=== PATIENT | male | born 1980 | race Caucasian/White ===

== ENCOUNTER 2021-11-20 08:18 | Inpatient (IN) | payer BC ==
[2021-11-20 09:28] LABS: Hemoglobin 14.7 g/dL (14.0-18.0); Mean Corpuscular Hemoglobin 30.9 pg (27.0-31.0); Mean Corpuscular Volume 96.6 fL (78.0-98.0); Mean Platelet Volume 5.9 fL (7.4-10.4); Platelet Count 409 thou/uL (130-400); RBC Distribution Width 13.9 % (11.5-14.5); Red Blood Cell (RBC) Count 4.76 mill/uL (4.70-6.10); White Blood Cell (WBC) Count 24.8 thou/uL (4.8-10.8)
[2021-11-20] MEDS ORDERED: Ondansetron PF 4 MG/2 ML Vial ONE (09:37)
[2021-11-20] MEDS ORDERED: Morphine 4 MG/ML VIAL ONE (09:37)
[2021-11-20 09:45] LABS: Band 32 % (5-11); MDiff Complete? YES; Monocytes 7 % (0-10); Neutrophil 60 % (42-75); Platelet Morphology Comment Appears Increased; Reactive Lymphocytes 1 % (0-10)
[2021-11-20] MEDS ORDERED: Iopamidol-370 76% 500 ML 1 ML ONE (09:45)
[2021-11-20 09:55] LABS: ALT (SGPT) 29 U/L (8-55); AST (SGOT) 15 U/L (5-34); Albumin 4.1 g/dL (3.5-5.0); Alkaline Phosphatase 64 U/L (40-110); Anion Gap 14 mmol/L (10-20); BUN (Urea Nitrogen) 14 mg/dL (8.9-20.6); Bilirubin, Total 0.6 mg/dL (0.2-1.2); Calc. Creatinine Clearance 0 mL/min (70-130); Carbon Dioxide 27 mmol/L (22-29); Chloride 100 mmol/L (98-107); Globulin 3.6 g/dL (2.4-3.5); Glucose 106 mg/dL (70-105); Lipase 23 U/L (8-78); Magnesium 1.8 mg/dL (1.6-2.6); Potassium 3.6 mmol/L (3.5-5.1); Protein, Total 7.7 g/dL (6.0-8.3); Sodium 137 mmol/L (136-145)
[2021-11-20] MEDS ORDERED: Piperacillin/Tazobactam 4.5 GM in Sodium Chloride 0.9% 100 ML IVPB SCH (10:00)
[2021-11-20] MEDS ORDERED: Acetaminophen 500 MG TAB ONE (10:24)
[2021-11-20 10:34] LABS: Bacteria/HPF None Seen HPF (None Seen); Bilirubin Negative (Negative); Blood, Urine Trace (Negative); Clarity Clear (Clear); Glucose, Urine (Dipstick) Normal (Negative); Ketone, Urine Negative (Negative); Leukocyte Negative Leu/uL (Negative); Nitrite Negative (Negative); Protein, Urine (Dipstick) Negative (Neg-Trace); RBC/HPF 0-3 HPF (0-3); Specific Gravity, Urine 1.019 (1.002-1.036); Squamous Epithelial None Seen HPF (0-3); Urobilinogen Normal mg/dL (Less than 2); WBC/HPF 0-3 HPF (0-3); pH, Urine 5.5 (5.0-9.0)
[2021-11-20] MEDS ORDERED: Vancomycin 1 GM/200 ML BAG ONE (12:02)
[2021-11-20] MEDS ORDERED: Acetaminophen 325 MG TAB PO PRN (12:11)
[2021-11-20] MEDS ORDERED: Morphine 4 MG/ML VIAL SLOW IVP PRN (12:11)
[2021-11-20] MEDS ORDERED: hydrALAZINE 20 MG/ML VIAL SLOW IVP PRN (12:11)
[2021-11-20] MEDS ORDERED: Lactated Ringer's 1,000 ML IV SCH (12:15)
[2021-11-20 13:30] VITALS: BMI 22.0
[2021-11-20] MEDS: Morphine 2 MG/ML VIAL SLOW IVP PRN (15:25)
[2021-11-20] MEDS ORDERED: Piperacillin/Tazobactam 3.375 GM in Sodium Chloride 0.9% 100 ML IVPB SCH (16:00)
[2021-11-20] MEDS ORDERED: HYDROcodone/Acetaminophen 10/325 mg Tablet PO PRN (18:21)
[2021-11-20] MEDS ORDERED: CERTOLIZUMAB PEGOL 400 MG/2 ML SC SCH (18:30)
[2021-11-20] MEDS ORDERED: Ketorolac Tromethamine 30 MG/ML VIAL IVP SCH (20:30)
[2021-11-20] MEDS: clonazePAM 0.5 MG TAB PO SCH (21:18)
[2021-11-20] MEDS: Piperacillin/Tazobactam 3.375 GM in Sodium Chloride 0.9% 100 ML IVPB SCH (21:18)
[2021-11-20] MEDS: Lactated Ringer's 1,000 ML IV SCH (21:18)
[2021-11-20 21:20] LABS: SARS-CoV-2 PCR by NAA Not Detected (NotDetected)
[2021-11-21] MEDS: Pramipexole Di-HCl 0.25 MG TAB PO SCH ×2 (00:05→22:14)
[2021-11-21] MEDS ORDERED: Ketorolac Tromethamine 30 MG/ML VIAL IVP PRN (02:00)
[2021-11-21] MEDS: Lactated Ringer's 1,000 ML IV SCH ×2 (06:22→13:23)
[2021-11-21] MEDS: Piperacillin/Tazobactam 3.375 GM in Sodium Chloride 0.9% 100 ML IVPB SCH ×3 (06:22→22:14)
[2021-11-21 07:26] LABS: #Eosinphils 0.1 thou/uL (0.0-0.7); #Lymphocytes 1.2 thou/uL (1.20-3.40); #Monocytes 0.8 thou/uL (0.11-0.59); #Neutrophils 4.7 thou/uL (1.40-6.50); %Basophils 0.3 % (0.0-1.0); %Eosinophils 1.8 % (0.0-10.0); %Lymphocytes 17.3 % (21.0-51.0); %Monocytes 11.2 % (0.0-10.0); %Neutrophils 69.5 % (42.0-75.0); Mean Corpuscular HGB CONC 32.7 g/dL (32.0-36.0); Mean Corpuscular Volume 97.8 fL (78.0-98.0); Mean Platelet Volume 6.2 fL (7.4-10.4); Platelet Count 307 thou/uL (130-400); RBC Distribution Width 13.9 % (11.5-14.5); Red Blood Cell (RBC) Count 4.38 mill/uL (4.70-6.10); White Blood Cell (WBC) Count 6.7 thou/uL (4.8-10.8)
[2021-11-21 07:47] LABS: Prothrombin Time 13.7 sec (12.0-14.7)
[2021-11-21 07:48] LABS: PTT 37.3 sec (22.9-36.1)
[2021-11-21 07:49] LABS: Anion Gap 13 mmol/L (10-20); BUN (Urea Nitrogen) 11 mg/dL (8.9-20.6); Calc. Creatinine Clearance 124 mL/min (70-130); Calcium 8.7 mg/dL (7.8-10.44); Carbon Dioxide 25 mmol/L (22-29); Chloride 105 mmol/L (98-107); Glucose 87 mg/dL (70-105); Potassium 3.9 mmol/L (3.5-5.1); Sodium 138 mmol/L (136-145)
[2021-11-21] MEDS: Finasteride 5 MG TAB PO SCH (08:19)
[2021-11-21] MEDS: Pantoprazole 40 MG VIAL IVP SCH (08:19)
[2021-11-21] MEDS: Enoxaparin Sodium 40 MG/0.4 ML SYRINGE SC SCH (08:20)
[2021-11-21] MEDS: Morphine 2 MG/ML VIAL SLOW IVP PRN (08:24)
[2021-11-21] MEDS ORDERED: Dexamethasone 1 MG TAB PO SCH (09:00)
[2021-11-21] MEDS: HYDROcodone/Acetaminophen 5/325 mg Tablet PO PRN ×2 (13:21→17:45)
[2021-11-21] MEDS: Senokot 8.6 MG TAB PO PRN (13:21)
[2021-11-21] MEDS: clonazePAM 0.5 MG TAB PO SCH (22:14)
[2021-11-22] MEDS: Lactated Ringer's 1,000 ML IV SCH ×4 (05:44→15:51)
[2021-11-22] MEDS: Piperacillin/Tazobactam 3.375 GM in Sodium Chloride 0.9% 100 ML IVPB SCH ×3 (05:45→20:06)
[2021-11-22 06:44] LABS: #Basophils 0.1 thou/uL (0.0-0.2); #Eosinphils 0.2 thou/uL (0.0-0.7); #Lymphocytes 2.3 thou/uL (1.20-3.40); #Monocytes 0.8 thou/uL (0.11-0.59); #Neutrophils 2.2 thou/uL (1.40-6.50); %Eosinophils 4.4 % (0.0-10.0); %Lymphocytes 40.6 % (21.0-51.0); %Monocytes 14.5 % (0.0-10.0); %Neutrophils 39.5 % (42.0-75.0); Hemoglobin 12.8 g/dL (14.0-18.0); Mean Corpuscular HGB CONC 33.1 g/dL (32.0-36.0); Mean Corpuscular Hemoglobin 32.1 pg (27.0-31.0); Mean Corpuscular Volume 97.1 fL (78.0-98.0); Mean Platelet Volume 6.4 fL (7.4-10.4); Platelet Count 322 thou/uL (130-400); RBC Distribution Width 13.6 % (11.5-14.5); Red Blood Cell (RBC) Count 3.98 mill/uL (4.70-6.10); White Blood Cell (WBC) Count 5.6 thou/uL (4.8-10.8)
[2021-11-22 06:50] LABS: Anion Gap 11 mmol/L (10-20); BUN (Urea Nitrogen) 7 mg/dL (8.9-20.6); Calc. Creatinine Clearance 121 mL/min (70-130); Calcium 8.8 mg/dL (7.8-10.44); Carbon Dioxide 25 mmol/L (22-29); Chloride 107 mmol/L (98-107); Glucose 85 mg/dL (70-105); Potassium 3.8 mmol/L (3.5-5.1); Sodium 139 mmol/L (136-145)
[2021-11-22] MEDS: Enoxaparin Sodium 40 MG/0.4 ML SYRINGE SC SCH (08:28)
[2021-11-22] MEDS: Finasteride 5 MG TAB PO SCH (08:30)
[2021-11-22] MEDS: Pantoprazole 40 MG VIAL IVP SCH (08:31)
[2021-11-22] MEDS: HYDROcodone/Acetaminophen 5/325 mg Tablet PO PRN ×2 (10:03→20:05)
[2021-11-22] MEDS ORDERED: traMADol HCl 50 MG TAB PO PRN (12:31)
[2021-11-22] MEDS: Dicyclomine 10 MG CAP PO SCH ×2 (16:42→20:04)
[2021-11-22] MEDS: clonazePAM 0.5 MG TAB PO SCH (20:04)
[2021-11-22] MEDS: Pramipexole Di-HCl 0.25 MG TAB PO SCH (20:05)
[2021-11-22] MEDS: Senokot 8.6 MG TAB PO PRN (20:11)
[2021-11-23] MEDS: Piperacillin/Tazobactam 3.375 GM in Sodium Chloride 0.9% 100 ML IVPB SCH ×3 (04:35→20:43)
[2021-11-23 06:07] LABS: #Basophils 0.1 thou/uL (0.0-0.2); #Eosinphils 0.4 thou/uL (0.0-0.7); #Lymphocytes 2.8 thou/uL (1.20-3.40); #Monocytes 0.9 thou/uL (0.11-0.59); #Neutrophils 3.8 thou/uL (1.40-6.50); %Basophils 0.8 % (0.0-1.0); %Eosinophils 4.5 % (0.0-10.0); %Lymphocytes 35.6 % (21.0-51.0); %Monocytes 11.2 % (0.0-10.0); %Neutrophils 47.8 % (42.0-75.0); Hemoglobin 13.3 g/dL (14.0-18.0); Mean Corpuscular HGB CONC 33.1 g/dL (32.0-36.0); Mean Corpuscular Hemoglobin 32.3 pg (27.0-31.0); Mean Corpuscular Volume 97.5 fL (78.0-98.0); Mean Platelet Volume 6.5 fL (7.4-10.4); Platelet Count 318 thou/uL (130-400); RBC Distribution Width 13.6 % (11.5-14.5); Red Blood Cell (RBC) Count 4.11 mill/uL (4.70-6.10)
[2021-11-23 06:27] LABS: Anion Gap 16 mmol/L (10-20); BUN (Urea Nitrogen) 6 mg/dL (8.9-20.6); Calc. Creatinine Clearance 102 mL/min (70-130); Carbon Dioxide 24 mmol/L (22-29); Chloride 103 mmol/L (98-107); Glucose 87 mg/dL (70-105); Potassium 3.5 mmol/L (3.5-5.1); Sodium 139 mmol/L (136-145)
[2021-11-23] MEDS: Enoxaparin Sodium 40 MG/0.4 ML SYRINGE SC SCH (08:08)
[2021-11-23] MEDS: Finasteride 5 MG TAB PO SCH (08:28)
[2021-11-23] MEDS: Dicyclomine 10 MG CAP PO SCH ×3 (08:28→17:29)
[2021-11-23] MEDS: HYDROcodone/Acetaminophen 5/325 mg Tablet PO PRN ×4 (08:29→20:50)
[2021-11-23] MEDS: Pantoprazole 40 MG VIAL IVP SCH (08:30)
[2021-11-23] MEDS: Lactated Ringer's 1,000 ML IV SCH (09:13)
[2021-11-23] MEDS: TESTOSTERONE TOP SCH (15:05)
[2021-11-23] MEDS ORDERED: Dicyclomine 10 MG CAP PO PRN (18:32)
[2021-11-23] MEDS: Pramipexole Di-HCl 0.25 MG TAB PO SCH (20:43)
[2021-11-23] MEDS: clonazePAM 0.5 MG TAB PO SCH (20:43)
[2021-11-23] MEDS: Senokot 8.6 MG TAB PO PRN (20:43)
[2021-11-24] MEDS: Piperacillin/Tazobactam 3.375 GM in Sodium Chloride 0.9% 100 ML IVPB SCH ×3 (04:32→20:50)
[2021-11-24 06:14] LABS: #Eosinphils 0.4 thou/uL (0.0-0.7); #Lymphocytes 2.7 thou/uL (1.20-3.40); #Monocytes 0.8 thou/uL (0.11-0.59); #Neutrophils 3.3 thou/uL (1.40-6.50); %Basophils 0.5 % (0.0-1.0); %Eosinophils 5.5 % (0.0-10.0); %Lymphocytes 37.3 % (21.0-51.0); %Monocytes 10.5 % (0.0-10.0); %Neutrophils 46.3 % (42.0-75.0); Hemoglobin 13.6 g/dL (14.0-18.0); Mean Corpuscular HGB CONC 32.4 g/dL (32.0-36.0); Mean Corpuscular Hemoglobin 31.4 pg (27.0-31.0); Mean Corpuscular Volume 97.1 fL (78.0-98.0); Mean Platelet Volume 6.3 fL (7.4-10.4); Platelet Count 369 thou/uL (130-400); RBC Distribution Width 13.7 % (11.5-14.5); Red Blood Cell (RBC) Count 4.34 mill/uL (4.70-6.10); White Blood Cell (WBC) Count 7.1 thou/uL (4.8-10.8)
[2021-11-24 06:33] LABS: Anion Gap 13 mmol/L (10-20); BUN (Urea Nitrogen) 7 mg/dL (8.9-20.6); Calc. Creatinine Clearance 92 mL/min (70-130); Calcium 9.5 mg/dL (7.8-10.44); Carbon Dioxide 28 mmol/L (22-29); Chloride 103 mmol/L (98-107); Glucose 93 mg/dL (70-105); Potassium 3.9 mmol/L (3.5-5.1); Sodium 140 mmol/L (136-145)
[2021-11-24] MEDS: Finasteride 5 MG TAB PO SCH (08:12)
[2021-11-24] MEDS: Enoxaparin Sodium 40 MG/0.4 ML SYRINGE SC SCH ×2 (08:12→08:17)
[2021-11-24] MEDS: Lactated Ringer's 1,000 ML IV SCH (08:13)
[2021-11-24] MEDS: Pantoprazole 40 MG VIAL IVP SCH (08:13)
[2021-11-24] MEDS: HYDROcodone/Acetaminophen 5/325 mg Tablet PO PRN ×3 (08:14→18:16)
[2021-11-24] MEDS: clonazePAM 0.5 MG TAB PO SCH (20:49)
[2021-11-24] MEDS: Pramipexole Di-HCl 0.25 MG TAB PO SCH (20:50)
[2021-11-25] MEDS: Piperacillin/Tazobactam 3.375 GM in Sodium Chloride 0.9% 100 ML IVPB SCH (05:35)
[2021-11-25] MEDS: Lactated Ringer's 1,000 ML IV SCH (05:37)
[2021-11-25] MEDS: HYDROcodone/Acetaminophen 5/325 mg Tablet PO PRN ×2 (08:06→12:18)
[2021-11-25] MEDS: Enoxaparin Sodium 40 MG/0.4 ML SYRINGE SC SCH (08:07)
[2021-11-25] MEDS: Finasteride 5 MG TAB PO SCH (08:07)
[2021-11-25] MEDS: Pantoprazole 40 MG VIAL IVP SCH (08:08)
[2021-11-25 12:27] VITALS: BP 144/85; TEMP 98.1
== END 2021-11-25 13:17 | disposition home or self-care (01) | DRG 872 ==
LOC: ERS 08:18 → T4-A 13:01
PROVIDERS: ADMIT Internal Medicine; ATTEND Internal Medicine
DX: A41.9 Sepsis, unspecified organism (principal); K57.20 Diverticulitis of large intestine with perforation and abscess without bleeding; Z20.822 Contact with and (suspected) exposure to COVID-19; J30.2 Other seasonal allergic rhinitis; M45.9 Ankylosing spondylitis of unspecified sites in spine; E86.0 Dehydration; K57.30 Diverticulosis of large intestine without perforation or abscess without bleeding; R30.0 Dysuria; Z79.899 Other long term (current) drug therapy; Z87.891 Personal history of nicotine dependence; Z98.42 Cataract extraction status, left eye; Z98.41 Cataract extraction status, right eye
CPT/HCPCS: 36415; 74018; 74177; 80048; 80053; 81003; 81015; 83605; 83690; 83735; 85025; 85610; 85730; 87040; 87804; C9113; J1650; J1885; J2270; J2405; J2543; J3370; J3490; J7120; J8540; Q9967; U0003; U0005